=== PATIENT | female | born 1955 | race Caucasian/White ===

== ENCOUNTER 2024-10-19 18:00 | Inpatient (IN) | payer MEDICARE, BC ==
[~2024-10-19] VITALS: Ht 160 cm; Wt 88.2 kg
--- NOTE | 2024-10-19 18:18 | ELECTROCARDIOGRAPH REPORT ---
[facility] Test Date: 2024-10-19 Test Time: 18:06:43 Pat Name: CON EPPS Department: EMERGENCY ROOM [id number] Room: Gender: F Barrel Line Operator: PM : 1955 Requested By: JEEVAN FROST Order Number: [id number] Reading MD: Dr. Fili Smith Measurements Intervals [place] Rate: 77 P: -47 NE: 102 QRS: -79 QRSD: 127 T: 45 QT: 431 QTc: 488 Interpretive Statements Sinus or ectopic atrial rhythm Short NE interval RBBB and LAFB Minimal ST elevation, lateral leads Electronically Signed On 10-19-2024 20:09:[address] Fili Smith Please click the below link to view image of tracing.
[2024-10-19 18:36] LABS: MEAN PLATELET VOLUME 8.4 FL (7.4-10.4); RED CELL DISTRIBUTION WIDTH 14.1 % (11.5-14.5)
--- NOTE | 2024-10-19 18:48 | RADIOLOGY REPORT ---
CHEST RADIOGRAPH REASON FOR EXAM: Chest pain COMPARISON: None TECHNIQUE: One view of the chest is provided FINDINGS: The cardiomediastinal silhouette is within normal limits for technique. There is no focal a irspace disease. There is no significant pleural effusion. No acute bony abnormality is identified. IMPRESSION: No radiographic evidence of acute cardiopulmonary process.
[2024-10-19 19:14] LABS: CREATININE 1.01 MG/DL (0.40-0.90); PRO BRAIN NATRIURETIC PEPTIDE 1018 PG/ML (0-125); TOTAL CARBON DIOXIDE 23.8 MMOL/L (24-32); eCRCL 43 ML/MIN; eGFR 54 ML/MIN
--- NOTE | 2024-10-19 19:40 | Physician Documentation ---
History of Present Illness ~ Chief Complaint: Chest Pain Stated Complaint: CP Time Seen by MD: 19:37 OK to notify your PCP?: Yes Source: patient, RN/MD, RN notes reviewed, old records Mode of Arrival: POV Exam Limitations: no limitations HPI This patient is a 69-year-old female who presents to the ED with chief complaint of chest pain.Patient states she is traveling and was set to drive back to [place] this morning. She states approximately one hour prior to driving this morning, around 8AM this moring she started to have some chest pain. Describes his pain as a heavy pain in the center of her chest. Patient states this chest pain worsened with time. She notes she did recently have an appointment with her human resources consultant at [facility] at 8:00 a.m. this morning. She states that everything at her checkup was fine. She does note history of AFib with ablation in 2013. Her last stress test was in 2012. She is followed by human resources consultant, . PATIENT DENIES ANY ASSOCIATED SYMPTOMS AT THIS TIME. PATIENT DENIES ANY ALLEVIATING OR EXACERBATING FACTORS. Medication Reconciliation Allergies: Uncoded Allergies: PENICILLIN (Allergy, Unknown, 10/19/24) vomitting Scheduled Aspirin (Aspirin EC), 1 TAB PO DAILY Aspirin (Aspirin EC), 1 TAB PO DAILY Empagliflozin (Jardiance), 1 TAB PO DAILY, (Reported) Gabapentin (Gabapentin), 1 TAB PO TID, (Reported) Lisinopril (Lisinopril), 1 TAB PO DAILY, (Reported) Metformin Hcl* (Metformin ER*), 2 TAB PO BID, (Reported) Ticagrelor (Brilinta), 1 TAB PO Q12H Ticagrelor (Brilinta), 1 TAB PO Q12H [prednisolone], OP QID, (Reported) Miscellaneous Medications [Prednisolone], (Reported) Past Medical History Past Medical History: Hypertension, Diabetes Past Surgical History: noncontributory Smoking Status: Never smoker Alcohol Use: None Drug Use: none Review of Systems All Other Systems at this time: Reviewed and Negative Constitutional: Reports: see HPI Physical Exam Vital Signs: RN Vital Signs have been reviewed: Yes, Temperature: 97.0, Source: Temporal, Heart Rate: 81, Respiratory Rate: 20, BP: 155/92, Pulse Oximetry: 96, Weight: 88.200 Oxygen Flow Rate: 0 Physical Exam General: The patient is well developed, well nourished, nontoxic appearing and is in no acute distress. Skin: [place], warm and dry with no rashes. HEENT: Head was normocephalic and atraumatic. Eyes - pupils equal, round, reactive to light and accommodation. Extraocular movements were intact. Conjunctivae were nonicteric. Ears - bilateral tympanic membranes were normal. The mouth and oropharynx were clear with moist mucous membranes. There were no pharyngeal exudates or erythema. Neck: Supple and nontender. There was no jugular venous distention, lymphadenopathy, thyromegaly or masses. Chest: Clear to auscultation bilaterally without wheezes, rales or rhonchi. No accessory muscle use. No dullness to percussion. Heart: Rate regular and rhythmic. S1, S2. No murmurs. Palpation of the chest wall was normal. No rubs or thrills. Abdomen: Soft, nontender and nondistended. Positive bowel sounds. No guarding or rebound. No hepatosplenomegaly or palpable masses. Extremities: No cyanosis, clubbing or edema. The patient moves all extremities. Pulses were equal and symmetric. Neurologic: Cranial nerves II-XII were intact. Sensation was intact to light touch throughout. Motor strength was 5/5 in all four extremities. Deep tendon reflexes were intact in both upper and lower extremities. Psychologic: The patient was oriented to person, place and time. The patient demonstrated appropriate judgement and insight. Progress Progress Note 2006: Discussed case with human resources consultant, Dr. Choe who is aware. Recommends nitro drip if transient. 2004: Case discussed with hospitalist, who agrees to evaluate patient for admission. 2032: Case discussed with the hospitalist who agrees to evaluate patient for admission. Results/Orders Reviewed/noted all lab results: Yes Results/Orders Orders - FILI SMITH MD Electrocardiogram (10/19/24 19:52) Page Hospitalist (10/19/24 20:15) Fill Out Med Reconciliation (10/19/24 20:15) Completed Orders - FILI SMITH MD Pt Inr (10/19/24 19:37) PTT (10/19/24 19:37) Aspirin 81mg Chew Tablet (Aspirin 81mg C (10/19/24 19:50) Nitroglycerin 0.4mg/Hr Patch (Nitro-Dur (10/19/24 19:50) Electrocardiogram (10/19/24 19:52) Heparin 10,000 Unit/Ml 1ml (Heparin 10,0 (10/19/24 19:55) Heparin 25,000 Unit/250ml Bag (Heparin 2 (10/19/24 19:55) Normal Saline 1000ml (0.9% Sodium Chlori (10/19/24 20:15) Nitroglycerin Sublingual Tab (Nitrostat (10/19/24 20:15) Heparin 10,000 Unit/Ml 1ml (Heparin 10,0 (10/19/24 20:15) Heparin 10,000 Unit/Ml 1ml (Heparin 10,0 (10/19/24 20:15) Laboratory Tests Test 10/19/24 18:25 10/19/24 19:51 White Blood Count 11.0 Red Blood Count 4.97 Hemoglobin 14.8 Hematocrit 44.1 Mean Corpuscular Volume 88.6 Mean Corpuscular Hemoglobin 29.8 Mean Corpuscular Hemoglobin Concent 33.6 Red Cell Distribution Width 14.1 Platelet Count 289 Mean Platelet Volume 8.4 Neutrophils (%) (Auto) 64.0 Lymphocytes (%) (Auto) 26.4 Monocytes (%) (Auto) 7.3 Eosinophils (%) (Auto) 1.6 Basophils (%) (Auto) 0.7 Neutrophils # (Auto) 7.0 Lymphocytes # (Auto) 2.9 Monocytes # (Auto) 0.8 Eosinophils # (Auto) 0.2 Basophils # (Auto) 0.1 CBC Comment Prothrombin Time 10.4 INR International Normalized Ratio 1.0 Activated Partial Thromboplast Time 27 Coagulation Comments Sodium Level 139 Potassium Level 3.5 Chloride Level 103 Carbon Dioxide Level 23.8 L Anion Gap 12 Blood Urea Nitrogen 15 Creatinine 1.01 H Estimated GFR/1.73 m2 54 BUN/Creatinine Ratio 14.9 Glucose Level 181 H Hemoglobin A1c 7.4 H Calcium Level 9.5 Magnesium Level 1.5 Troponin I High Sensitivity 621 *H 1164 *H Pro-B-Type Natriuretic Peptide 1018 H Albumin 3.9 Triglycerides Level 121 Cholesterol Level 149 LDL Cholesterol 56 HDL Cholesterol 73 H Cholesterol/HDL Ratio 2.0 Thyroid Stimulating Hormone (TSH) 3.01 Chemistry Comments D-Dimer 0.72 H D-Dimer Comment Troponin I High Sens Percent Delta 87 Troponin I Hi Sens Absolute Change 543 Re-Evaluation Re-Evaluation : Re-Evaluation: Improved, Unchanged Progress Patient was seen and examined. Patient was given reassurance. Patient had some ischemic changes on EKG. Laboratory work was obtained IV lines obtained patient received aspirin as well as nitroglycerin. Patient was placed on a monitor IV lines established. CBC is within normal limits. No anemia no leukocytosis to suggest infection. Chemistry showed slight decrease in his CO2 at 23.8 glucose 181. Hemoglobin A1c was a bit high at 7.4 proBNP 1018. LFTs TSH and chemistry basically within normal limits no electrolyte abnormalities. Coagulation was also obtained. Patient is normal troponin is 621. Patient's EKG did show some signs of ischemia in her presentation was very suspicious for a myocardial infarction. Patient was stabilized. Patient received aspirin nitroglycerin and then later heparin drip and bolus. Spoke to Cardiology who recommended nitroglycerin drip if pain is not controlled. Later contacted the hospitalist who kindly agreed to admit the patient for further workup and care. Patient was found to be having a non ST-elevation HI. patient was then admitted to the hospitalist service for further workup and care. Continuous monitoring tech interpretation shows normal sinus rhythm heart rate 80s, no ectopy, normal, my interpretation. Pulse oximetry monitor interpretation shows normal oxygenation at 99% room air, normal, my interpretation. EKG/XRAY/CT/US/VASC/MRI EKG : Intepreting Monitor?: Yes Additional Comment Patient: CON EPPS Medical Record: [id number] [facility] : 1955, Age: 69Sex: F Location: ER Patient Status: [facility] ER Service Date/Time: [id number] Ordering Physician: JEEVAN FROST MD Exam Name: ELECTROCARDIOGRAM Technologist: [facility] Test Date: 2024-10-19 Test Time: 18:06:43 Pat Name: CON EPPS Department: EMERGENCY ROOM Patient ID: [facility]-[id number] Room: Gender: F Projector Operator: PM : 1955 Requested By: JEEVAN FROST Order Number: [id number] Reading MD: Dr. Fili Smith Measurements Intervals [place] Rate: 77 P: -47 [place]: 102 QRS: -79 QRSD: 127 T: 45 QT: 431 QTc: 488 Interpretive Statements Sinus or ectopic atrial rhythm Short NC interval RBBB and LAFB Minimal ST elevation, lateral leads Electronically Signed On 10-19-2024 20:09:[address] Fili Smith Please click the below link to view image of tracing. EKG Date and Time:10/19/241805 Electronically Signed by: FILI SMITH MD Date and Time: 10/19/242008 NO PRIMARY CARE PROVIDER~ cc: ~ Chest X-Ray : Additional Comments Patient: CON EPPS Medical Record: [id number] [facility] : 1955, Age: 69 Sex: Female Location: ER Patient Status: [facility] ER Service Date/Time: 10/19/241831 Ordering Physician: JEEVAN FROST MD Exam: CHEST,SINGLE VIEW CHEST RADIOGRAPH REASON FOR EXAM: Chest pain COMPARISON: None TECHNIQUE: One view of the chest is provided FINDINGS: The cardiomediastinal silhouette is within normal limits for technique. There is no focal airspace disease. There is no significant pleural effusion. No acute bony abnormality is identified. IMPRESSION: No radiographic evidence of acute cardiopulmonary process. Electronically Signed by:TOM LEE MD Date & Time: 10/19/241844 Dictated by: TOM LEE MD Dictation date and time: 10/19/241829 Primary Care Provider: NO PRIMARY CARE PROVIDER cc: JEEVAN FROST MD ~ Heart Score: Heart Score Response (Comments) Value History Moderate Suspicious 1 EKG Repolarization Disturb 1 Age >65 2 Risk Factors >3 or Hx ASHD 2 Troponin >3 x's Normal limit 2 Total 8 Medical Decision Making Additional info obtained from: old records Differential Dx:Considerations: Include: angina, aortic dissection, chest wall pain, cholelithiasis, CHF, costochondritis, esophageal reflux/spasm, gastritis, herpes zoster, myocardial infarction, pericarditis, pleuritis, pancreatitis, pneumonia, pneumothorax, pulmonary embolus, other Departure Time of Disposition: 20:05 Disposition: ADMITTED INPATIENT Admitted to Inpatient Unit: yes, to hospitalist Admission Level of Care: PCU with Tele Impression: Primary Impression: NSTEMI (non-ST elevated myocardial infarction) Condition: Guarded Referrals: NO PRIMARY CARE PROVIDER (PCP) Prescriptions Ticagrelor (BRILINTA) 90 Mg Tablet 1 TAB PO Q12H for 30 Days, #60 TAB 0 Refills Prov: DARION LOPEZ MD 10/22/24 Aspirin (Aspirin EC) 81 Mg Tablet.dr 1 TAB PO DAILY for 30 Days, #30 TAB Prov: DARION LOPEZ MD 10/22/24 Aspirin (Aspirin EC) 81 Mg Tablet.dr 1 TAB PO DAILY for 30 Days, #30 TAB 3 Refills Prov: LAURA OWENS 10/21/24 Ticagrelor (BRILINTA) 90 Mg Tablet 1 TAB PO Q12H for 30 Days, #60 TAB 3 Refills Prov: LAURA OWENS 10/21/24 Education Educated: Patient Educated regarding: diagnosis Critical Care Note Total Time (mins): 30 Critical Care Note The very real possibility of a deterioration of this patient's condition required the highest level of my preparedness for sudden, emergent intervention. I provided critical care services, which included medication orders, frequent reevaluations of the patient's condition and response to treatment, ordering and reviewing test results, and discussing the case with various consultants. Excludes time spent performing separately billable procedures. The critical care time associated with the care of the patient was 30 minutes. Signature Scribe Signature: Scribed for Fili Smith MD by Perla Bates . 10/19/24 20:04 Attestation: The note accurately reflects work and decisions made by me.Fili Smith MD 10/24/24 18:58 FILI SMITH MD Oct 19, 2024 19:40
[2024-10-19 20:09] LABS: APTT 27 SECONDS (22-32); INR 1.0 INR
[2024-10-19] MEDS: heparin 10,000 units/1 ML INJ IV ONE ×2 (20:09→20:40)
[2024-10-19] MEDS: heparin 25,000 UNIT/250ml bag 250 ML IV PRN (20:21)
[2024-10-19] MEDS: MESSAGE TO NURSING IV ONE (20:40)
[2024-10-19] MEDS: normal saline 1000ml 1,000 ML IV ONE (20:44)
[2024-10-19] MEDS ORDERED: magnesium sulf-water 4G/100mL 100 ML IV PRN (21:20)
[2024-10-19] MEDS ORDERED: mag hydrox/Alum hydrox/simeth 30ml oral suspension PO PRN (21:20)
[2024-10-19] MEDS ORDERED: potassium Cl 20 mEq SR tablet PO PRN (21:20)
[2024-10-19] MEDS ORDERED: magnesium sulf-water 2g/50mL 50 ML IV PRN (21:20)
[2024-10-19] MEDS ORDERED: potassium Cl 40MEQ/1/2NS 520ml 520 ML IV PRN (21:20)
[2024-10-19] MEDS ORDERED: magnesium hydroxide 30ml (MOM) UD suspension PO PRN (21:20)
[2024-10-19] MEDS ORDERED: glucagon, human recombinant 1mg kit SUBCUT PRN (21:30)
[2024-10-19] MEDS ORDERED: dextrose 50%-water 50ml dispensing syringe IV PRN ×2 (21:30)
[2024-10-19] MEDS ORDERED: DEXTROSE 15 GM of carb/4 tabs (each vial/BOTTLE has 4 tablets) PO PRN ×2 (21:30)
--- NOTE | 2024-10-19 21:32 | HISTORY AND PHYSICAL-Residence ---
History & Physical Providers to CC Resident Creating Document: GISELLEBRITTANY BOSCH ~ History of Present Illness Reason for Admit\Complaint: NSTEMI History of Present Illness This is a 69-year-old female patient with past medical history of hypertension, diabetes, atrial fibrillation, duodenal cancer, presented to the ED for chest pain. The chest pain started after a stressful discussion at 4:00 p.m. while she was driving, radiating to the back and left shoulder, worsening with movement and improving with rest, associated with nausea, dizziness and lightheadedness. Patient denies shortness of breath, cough, fever, or any other symptoms. The chest pain slightly improved after nitroglycerin tablet, now is 5/10 in intensity. No other symptom reported. Patient had ablation for AFib approximately in 2014 and had to use Warfarin after the procedure. In spite of that, she has not using it for the last few years because she lost cardiology follow-up. Patient is following with Dr. Blevins at [facility] for previous duodenal cancer in 2020, treated with surgery. No radiation or chemotherapy needed afterwards. Allergies: Uncoded Allergies: PENICILLIN (Allergy, Unknown, 10/19/24) vomitting Past Medical History Past Medical History Hypertension, diabetes, atrial fibrillation, duodenal cancer Past Surgical History Surgical History Comment Duodenectomy in 2020 Appendectomy 2021 Past Social History Social History Comment Patient used to smoke one pack of cigarettes for approximately 30 years. She quit 30 years ago. Denies alcohol abuse States using marijuana at bedtime. No other illicit drug use. Smoking: Quit greater than 1 year Alcohol Use: None Drug Use: Marijuana Lives with: Family Lives In: Home Occupation: retired ROS All Other Systems: Reviewed and Negative Constitutional: Reports: see HPI Eyes: Reports: no symptoms reported ENT: Reports: no symptoms reported Respiratory: Reports: no symptoms reported Cardiovascular: Reports: chest pain, diaphoresis, lightheadedness Gastrointestinal: Reports: nausea Genitourinary: Reports: no symptoms reported Female Genitalia: Reports: no reported symptoms Neurological: Reports: dizziness Musculoskeletal: Reports: no symptoms reported Integumentary: Reports: no symptoms reported Allergic/Immunologic: Reports: no symptoms reported Hematologic/Lymphatic: Reports: no symptoms reported Endocrine: Reports: no symptoms reported Psychiatric: Reports: no symptoms reported Exam Vitals: Vital Signs Date Time Temp Pulse Resp B/P (MAP) Pulse Ox O2 Delivery O2 Flow Rate FiO2 10/19/24 20:51 90 163/93 (116) 94 10/19/24 18:10 97.0 20 0 General: General: Awake and Alert, no acute distress. HEENT: Conjunctiva pink, Sclera clear, Mucus Membranes moist. Neck: Supple without masses and tenderness. Resp: Unlabored. Lungs clear to auscultation bilaterally. Heart: Regular Rate and rhythm, normal S1 and S2 without murmur, rub or gallop. Abdomen: Soft and non tender no organomegaly Extremities: No cyanosis,clubbing. Trace lower extremity bilateral edema. Skin: Warm and Dry. Diagnostic Data Last Recorded Lab Results: 10/20/24 0245 10/20/24 0245 Diagnostic Data: Laboratory Tests Test 10/19/24 18:25 Prothrombin Time 10.4 SECONDS (9.0-12.0) INR International Normalized Ratio 1.0 INR Activated Partial Thromboplast Time 27 SECONDS (22-32) Coagulation Comments Advance Care Planning Advanced Care plannin - 30 Minutes (I discussed advanced care directives with the patient who wants to be full code. However, if after 1st resuscitation she goes into a 2nd cardiac arrest, she do not want to be resuscitated.) Additional Plan Assessment This is a 69-year-old female patient with a history of hypertension, diabetes, atrial fibrillation, duodenal concern, admitted for chest pain. EKG showed signs of ischemia, troponin was elevated and she was diagnosed with NSTEMI. Dr. Choe was consulted, recommended medical treatment initially and will follow the patient. Plan NSTEMI Heart score 9 points (high score), ELSA 4 points (20% mortality risk), GEOVANNY 114 points (6% probability of ) EKG: <1mm ST elevation in aVR and V2. Diffuse ST depression. Dr. Choe confirmed NSTEMI. Troponins: 621 - 1164 - pending BNP 1018 Started on heparin drip Ordered aspirin and clopidogrel loading dose Ordered nitroglycerin 0.4 mg p.r.n. Started on aspirin 81 mg, clopidogrel 75 mg, lisinopril 10 mg, carvedilol 3.125 mg b.i.d., atorvastatin 40 mg, furosemide 40 mg p.o. 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 Date of Service: Oct 19, 2024 Billing Provider: GAVIOTA MORIN MD Common Visit Codes: 50534-PUFDJPC INP/OBS CARE (HIGH) Assessment/Plan Assessment Evaluated the patient with the help of residents. Discussed the case with them. Reviewed notes by Dr. Bosch and agree with his assessments and plans. I also reviewed the records myself. This included labs, radiology, and notes from other providers. Will be careful with ani platelets at this time. Await cards impressions HIRO DESAI, RES Oct 19, 2024 21:32 GAVIOTA MORIN MD Oct 20, 2024 04:42
[2024-10-19 22:13] LABS: CHOL/HDL RATIO 2.0 (0.00-4.99); LDL CHOLESTEROL 56 MG/DL (50-100)
[2024-10-19] MEDS ORDERED: METF-900 PO (22:20)
[2024-10-19] MEDS ORDERED: LISI20TA28 PO (22:20)
[2024-10-19] MEDS ORDERED: EMPA10TA PO (22:20)
[2024-10-19] MEDS ORDERED: GABA-1405 PO (22:21)
[2024-10-19 23:10] VITALS: BP 139/88; PULSE 92; RESP 17; TEMP 96.8; O2SAT 95
[2024-10-20] VITALS (15 sets, daily range): BP systolic 11–156; BP diastolic 54–79; PULSE 65–89; RESP 12–18; TEMP 97–98; O2SAT 93–100
[2024-10-20] MEDS ORDERED: prednisolone OP (01:18)
[2024-10-20] MEDS ORDERED: PREDNISOLONE (01:18)
[2024-10-20 03:14] LABS: MEAN PLATELET VOLUME 8.5 FL (7.4-10.4); RED CELL DISTRIBUTION WIDTH 13.8 % (11.5-14.5)
[2024-10-20 03:40] LABS: CREATININE 0.82 MG/DL (0.40-0.90); TOTAL CARBON DIOXIDE 24.0 MMOL/L (24-32); eCRCL 53 ML/MIN; eGFR 69 ML/MIN
[2024-10-20] MEDS: MESSAGE TO NURSING IV ONE ×2 (04:25→12:10)
--- NOTE | 2024-10-20 06:02 | ELECTROCARDIOGRAPH REPORT ---
[facility] Test Date: 2024-10-19 Test Time: 19:55:03 Pat Name: CON EPPS Department: EMERGENCY ROOM Room: [place] [address] [address] Gender: F Director Of Public Safety: SONYA : 1955 Requested By: CARLOS HENDRICKS Order Number: [id number] Reading MD: Dr. Carlos Hendricks Measurements Intervals [place] Rate: 86 P: 64 [place]: 158 QRS: -72 QRSD: 138 T: 15 QT: 410 QTc: 491 Interpretive Statements Sinus rhythm RBBB and LAFB Electronically Signed On 10-20-2024 18:33:[address] Carlos Hendricks Please click the below link to view image of tracing.
[2024-10-20] MEDS: INSULIN LISPRO 100 UNIT/ML INSULN.PEN MULTI-DOSE SQ SCH (07:00)
[2024-10-20] MEDS: K and/or MAG REPLACEMENT MC SCH (08:00)
[2024-10-20] MEDS: pantoprazole 40mg Tablet.DR PO SCH (09:19)
[2024-10-20] MEDS: aspirin 81mg, enteric-coated 1 TAB TABLET.DR PO SCH (09:21)
--- NOTE | 2024-10-20 09:44 | PROGRESS NOTE ---
Daily Progress Note Providers to CC No new complaint today, resting comfortably in the bed ~ Central Line/PICC still needed: No Leija-Non Protocol Leija Indications Met/Not Met: F/C Indications Not Met Antibiotic Timeout Antibiotic Ordered?: No MRSA Education MRSA Education Provided to pt: No Subjective As above Objective Vital Signs Date Time Temp Pulse Resp B/P (MAP) Pulse Ox O2 Delivery O2 Flow Rate FiO2 10/20/24 09:22 97 10/20/24 07:00 97.0 16 156/75 (102) 97 Room Air 0.0 21 Vital signs, stable ,afebrile. Pulse Oximetry reflects adequate oxygenation. General: well developed, well nourished. Awake , alert, and oriented x4, resting comfortably in the bed, in no acute distress . Skin: Warm, dry, no pallor, no rash or petechiae. HEENT: Atraumatic, normocephalic, EOMI, anicteric sclera B; pink conjunctiva; PERRLA, normal oropharynx, moist oral and nasal mucosa. Tympanic membrane , nose , throat clear. Neck: Trachea midline. Supple, full range of motion, no JVD, bruit , hepatojugular reflex , lymphadenopathy or masses, or other lesions Cardiac: Regular rhythm, regular rate no murmurs, rubs, or gallops. Normal S1 and S2, no S3 noticed. PMI is normal. Respiratory: Equal breath sounds bilaterally, no tachypnea; lungs clear to auscultation bilaterally, no wheezing ,rub or rales, or crackles. Chest wall is symmetric and without deformity. No signs of trauma. Chest wall is nontender. No signs of respiratory distress. Resonance is normal upon percussion bilaterally. Gastrointestinal: Abdomen symmetric, non-distended, soft, non-tender, normal bowel sounds x4 quadrant, normoactive, no hepatosplenomegaly , no masses , no bruit, no flank pain bilaterally. No voluntary guarding, rebound, or rigidity. No tenderness to percussion. No pulsatile masses. Equal femoral pulses. No Ray's sign or McBurney point tenderness. Back; no CVA tenderness bilaterally, no deformities. Neck and back are without deformity as well. No tenderness noted on palpation of the spinous processes. Spinous processes are midline. Cervical, thoracic, and lumbar paraspinal muscles are not tender and are without spasm. Musculoskeletal: Extremities, normal range of motion, non-tender, muscle strength 5/5 x 4. Negative Homans signs bilaterally on lower extremity. Distal pulses full symmetrical, no clubbing, cyanosis , edema. Neurological: Speech is clear, alert, and oriented x 4. No motor or sensory deficit, deep tendon reflexes normal, cerebellar intact. Cranial nerves II-XII intact. Psych: Alert and or appropriate, normal affect. Vascular: Good distal pulses, which are equal x4; capillary refill less than 2 seconds. Lymphatic, no lymphadenopathy. Result Diagram: 10/20/24 0245 10/20/24 0245 Coagulation Studies Laboratory Tests Test 10/19/24 18:25 10/19/24 19:51 10/20/24 02:45 10/20/24 03:10 Prothrombin Time 10.4 SECONDS (9.0-12.0) INR International Normalized Ratio 1.0 INR Activated Partial Thromboplast Time 27 SECONDS (22-32) D-Dimer 0.72 MG/L FEU (0-0.50) H D-Dimer Comment Coagulation Comments APTT (Heparin Protocol) 85 SECONDS (45-60) H Problem\Assessment\Plan Assessment/ Plan This is a 69-year-old female patient with a history of hypertension, diabetes, atrial fibrillation, duodenal concern, admitted for chest pain. EKG showed signs of ischemia, troponin was elevated and she was diagnosed with NSTEMI. Dr. Choe was consulted, recommended medical treatment initially and will follow the patient. NSTEMI Heart score 9 points (high score), ELSA 4 points (20% mortality risk), GEOVANNY 114 points (6% probability of ) EKG: <1mm ST elevation in aVR and V2. Diffuse ST depression. Dr. Choe confirmed NSTEMI. Awaiting to go to cardiac catheterization today Troponins: 621 - 1164 - pending BNP 1018 Started on heparin drip Ordered aspirin and clopidogrel loading dose Ordered nitroglycerin 0.4 mg p.r.n. Started on aspirin 81 mg, clopidogrel 75 mg, lisinopril 10 mg, carvedilol 3.125 mg b.i.d., atorvastatin 40 mg, furosemide 40 mg p.o. 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
--- NOTE | 2024-10-20 11:57 | CONSULTATION REPORT ---
History of Present Illness Providers to CC CC: TYRESE CHOE MD ~ Reason for Admit\Admit Dx: Cardiology consultation History of Present Illness This is a 69-year-old female who presented secondary to chest pain. She has a history of hypertension, diabetes mellitus, atrial fibrillation status post ablation 2014, duodenal cancer in remission. She presented yesterday, October 19 secondary to chest pain that started after a stressful conversation. She was in the [place] area at the time. She described pain across her center and left chest which radiated to her left shoulder, neck and back. Occurred while at rest. Had associated shortness for breath, diaphoresis, dizziness and nausea. She describes the pain as a pressure. Otherwise, reports a couple months ago she had one episode of swelling in her bilateral feet. She was given a prescription for Lasix but did not end up needing to take it. She complains of intermittent, rare, nonsustained palpitations. Otherwise, review of systems negative. High sensitivity troponin 621, 1164, 1493, 1194. EKG right bundle-branch block with left anterior fascicular block. Allergies: Uncoded Allergies: PENICILLIN (Allergy, Unknown, 10/19/24) vomitting Home Medications Home Medications Active Reported [Prednisolone] [prednisolone] OP QID Gabapentin 600 Mg Tablet 1 Tab PO TID Jardiance (Empagliflozin) 10 Mg Tablet 1 Tab PO DAILY Metformin ER* (Metformin HCl) 500 Mg Tab.sr.24h 2 Tab PO BID Lisinopril 20 Mg Tablet 1 Tab PO DAILY Past Medical History Medical History Comment Hypertension Hyperlipidemia with the last hemoglobin A1c 7.0 Atrial fibrillation status post ablation Duodenal cancer in remission Past Surgical History Surgical History Comment Duodenectomy Appendectomy Ablation for atrial fibrillation Past Social History Social History Comment History of smoking. Has quit. No drugs or alcohol use. Physical Exam Last Vital Signs Recorded: RN Vital Signs have been reviewed: Yes, Temperature: 97.4, Source: Temporal, Heart Rate: 81, Respiratory Rate: 12, BP: 134/79, Pulse Oximetry: 97, Weight: 88.200 Physical Exam General: Awake, alert, oriented. No apparent distress Neck: Supple. Normal range of motion. No JVD Respiratory: Lungs are clear to auscultation bilaterally. No respiratory distress. Chest: Normal shape and size. No accessory muscle use. Cardiovascular: Regular rate and rhythm. S1-S2. No murmur, gallop, rub. Gastrointestinal: Abdomen is soft. Nontender to palpation. Bowel sounds present. Extremities: No lower extremity edema, cyanosis or clubbing. Neurologic: Alert and oriented x4. Nonfocal Psychiatric: Normal mood and affect. Skin: Normal color. Warm and dry. Review of Systems ROS Patient complains of chest pain with associated shortness for breath, diaphoresis, dizziness and nausea as noted in HPI. Rare palpitations. Otherwise review of systems negative. Results Diagram Lab Result Diagram: 10/20/2424410/20/24244 Assessment/Plan Additional Plan This is a 69-year-old female who presented with chest pain. The following is her problem list: NSTEMI Echocardiogram pending --continue heparin drip --continue carvedilol --aspirin 81 mg daily --start statin --was started on Plavix 75 mg daily --recommend cardiac catheterization. The risks, benefits and alternatives were reviewed with her. She wishes to proceed. She will be scheduled for this afternoon. Right bundle-branch block and left anterior fascicular block --continue to monitor on telemetry Hypertension --continue lisinopril Diabetes mellitus Hemoglobin A1c 7.4 --management per hospitalist History of atrial fibrillation Status post ablation in 2015 States no reoccurrence. As no longer on oral anticoagulation. --recommend further discussion as an outpatient. She will follow up at Dr. Choe's office. Case discussed with Dr. Zurdo Choe. Supervising Supervising Physician: YUKO Rodriguez NP Oct 20, 2024 11:57
[2024-10-20] MEDS: heparin 25,000 UNIT/250ml bag 250 ML IV PRN (12:00)
[2024-10-20] MEDS: magnesium Cl slow-release 64mg tablet PO PRN (12:05)
[2024-10-20] MEDS: heparin 10,000 units/1 ML INJ IV PRN (12:05)
[2024-10-20] MEDS ORDERED: LIDOcaine 1% (10mg/ml) 2ml vial ONE (15:47)
[2024-10-20] MEDS ORDERED: fentaNYL/PF 50MCG/1 ML 2ML syringe ONE (15:47)
[2024-10-20] MEDS ORDERED: midazolam 1 mg/ML 2ml injection ONE ×3 (15:47→16:42)
[2024-10-20] MEDS ORDERED: verapamil 2.5 mg/ml inj IV ONE (15:47)
[2024-10-20] MEDS ORDERED: heparin 1,000unit/ml 10ml vial 10 ML ONE (15:48)
[2024-10-20] MEDS ORDERED: nitroGLYCERIN 500mcg/5mL D5W 5 ML IV ONE (15:49)
--- NOTE | 2024-10-20 16:09 | CARDIOLOGY REPORT ---
APPROVED REPORT EXAM: Comprehensive 2D, Doppler, and color-flow Echocardiogram. Patient Location: [address] Heart Rate: 80's bpm Rhythm: SINUS Indications MYOCARDIAL INFARCTION HYPERTENSION DIABETES MELLITUS ATRIAL FIBRILLATION S/P ABLATION 2014 Telephoto Engineer: NONE Previous echo: NONE 2D Dimensions RVDd 2.8 cm IVSd 1.0 (0.7-1.1cm) LVDd 5.1 cm PWd 1.1 (0.7-1.1cm) IVSs 1.2 (0.8-1.2cm) LVDs 3.6 (2.5-4.0cm) PWs 1.5 (0.8-1.2cm) LVOT Diameter 1.97 (1.8-2.4cm) LVEF(%) 55.7 (>50%) IVC 16.04 mm FS (%) 29.1 % SV 67.8 ml CO 5.4 L/min M-Mode Dimensions Left Atrium(MM) 5.03 (2.5-4.0cm) Aortic Root 2.97 (2.2-3.7cm) Aortic Cusp Exc 1.81 (1.5-2.0cm) Aortic Valve AoV Peak Richar. 164.2 cm/s AoV VTI 33.0 cm AO Peak GR. 10.8 mmHg AO Mean GR. 6 mmHg LVOT VTI 22.46 cm LVOT Peak Richar. 106.2 cm/s JOSE(VTI)/BSA 2.08 cm2/m2 JOSE (VTI) 2.08 cm2 Mitral Valve MV E Velocity 139.9 cm/s MV Peak Gr. 8 mmHg MV DECEL TIME 208 ms MV A Velocity 79.1 cm/s MV PHT 52 ms E/A Ratio 1.8 MVA (PHT) 4.23 cm2 MV HChh241.4 cm/s TDI Lateral E' P. V4.69 cm/s E/Lateral E' 29.8 Tricuspid Valve TR P. Velocity 313 cm/s RAP ESTIMATE 10 mmHg TR Peak Gr. 39 mmHg RVSP 49 mmHg Pulmonary Vein S1 Velocity 41.6 cm/s D2 Velocity 61.8 cm/s LEFT VENTRICLE Normal LV size and wall thickness. Distal anteroseptal distal inferior hypokinesia seen. Overall syst olic function is mildly impaired. Overall LVEF is about 50%. RIGHT VENTRICLE RV is normal size and function. Estimated PA systolic pressure of 49 mm of mercury. ATRIA Left atrium is moderately dilated. AORTIC VALVE Trileaflet AV appears mildly sclerotic without stenosis. Mild insufficiency. MITRAL VALVE Mild MV annular calcification without stenosis. Mild regurgitation. TRICUSPID VALVE TV appears structurally normal with mild regurgitation. PULMONIC VALVE Normal PV without stenosis, physiologic insufficiency. GREAT VESSELS The aortic root is normal in size. IVC is normal in size and collapses greater than 50% with inspirat ion. PERICARDIUM Normal pericardium. No effusion. Conclusion Normal LV size and wall thickness. Distal anteroseptal distal inferior hypokinesia seen. Overall sys tolic function is mildly impaired. RV is normal size and function. Estimated PA systolic pressure of 49 mm of mercury. Trileaflet AV appears mildly sclerotic without stenosis. Mild insufficiency. Mild MV annular calcification without stenosis. Mild regurgitation. TV appears structurally normal with mild regurgitation. Normal PV without stenosis, physiologic insufficiency. Normal pericardium. No effusion.
[2024-10-20] MEDS ORDERED: OXAZEpam 15mg capsule PO PRN (18:35)
[2024-10-20] MEDS ORDERED: ondansetron/PF 4mg/2ml inj IV PRN (18:35)
[2024-10-20] MEDS: docusate sod 100mg capsule PO SCH (21:28)
[2024-10-21] VITALS (8 sets, daily range): BP systolic 97–140; BP diastolic 42–83; PULSE 72–97; RESP 12–16; TEMP 97.1–97.9; O2SAT 95–100
[2024-10-21] MEDS: ondansetron/PF 4mg/2ml inj IV PRN (01:44)
[2024-10-21 05:55] LABS: MEAN PLATELET VOLUME 8.4 FL (7.4-10.4); RED CELL DISTRIBUTION WIDTH 13.7 % (11.5-14.5)
[2024-10-21 06:46] LABS: CREATININE 0.91 MG/DL (0.40-0.90); TOTAL CARBON DIOXIDE 23.4 MMOL/L (24-32); eCRCL 48 ML/MIN; eGFR 61 ML/MIN
[2024-10-21] MEDS: aspirin 81mg, enteric-coated 1 TAB TABLET.DR PO ONE (08:06)
[2024-10-21] MEDS ORDERED: TICA90TA2 PO (16:12)
[2024-10-21] MEDS ORDERED: ASPI81TA52 PO (16:13)
--- NOTE | 2024-10-21 18:02 | PROGRESS NOTE ---
Daily Progress Note Providers to CC No new complaint, yesterday had cardiac catheterization with stent, doing well in recovery ~ Central Line/PICC still needed: No Leija-Non Protocol Leija Indications Met/Not Met: F/C Indications Not Met Antibiotic Timeout Antibiotic Ordered?: No MRSA Education MRSA Education Provided to pt: No Subjective As above Objective Vital Signs Date Time Temp Pulse Resp B/P (MAP) Pulse Ox O2 Delivery O2 Flow Rate FiO2 10/21/24 15:00 97.6 97 14 104/57 (73) 95 Room Air 10/21/24 08:00 0.0 21 Vital signs, stable ,afebrile. Pulse Oximetry reflects adequate oxygenation. General: well developed, well nourished. Awake , alert, and oriented x4, resting comfortably in the bed, in no acute distress . Skin: Warm, dry, no pallor, no rash or petechiae. HEENT: Atraumatic, normocephalic, EOMI, anicteric sclera B; pink conjunctiva; PERRLA, normal oropharynx, moist oral and nasal mucosa. Tympanic membrane , nose , throat clear. Neck: Trachea midline. Supple, full range of motion, no JVD, bruit , hepatojugular reflex , lymphadenopathy or masses, or other lesions Cardiac: Regular rhythm, regular rate no murmurs, rubs, or gallops. Normal S1 and S2, no S3 noticed. PMI is normal. Respiratory: Equal breath sounds bilaterally, no tachypnea; lungs clear to auscultation bilaterally, no wheezing ,rub or rales, or crackles. Chest wall is symmetric and without deformity. No signs of trauma. Chest wall is nontender. No signs of respiratory distress. Resonance is normal upon percussion bilaterally. Gastrointestinal: Abdomen symmetric, non-distended, soft, non-tender, normal bowel sounds x4 quadrant, normoactive, no hepatosplenomegaly , no masses , no bruit, no flank pain bilaterally. No voluntary guarding, rebound, or rigidity. No tenderness to percussion. No pulsatile masses. Equal femoral pulses. No Ray's sign or McBurney point tenderness. Back; no CVA tenderness bilaterally, no deformities. Neck and back are without deformity as well. No tenderness noted on palpation of the spinous processes. Spinous processes are midline. Cervical, thoracic, and lumbar paraspinal muscles are not tender and are without spasm. ss. Musculoskeletal: Extremities, normal range of motion, non-tender, muscle strength 5/5 x 4. Negative Homans signs bilaterally on lower extremity. Distal pulses full symmetrical, no clubbing, cyanosis , edema. Neurological: Speech is clear, alert, and oriented x 4. No motor or sensory deficit, deep tendon reflexes normal, cerebellar intact. Cranial nerves II-XII intact. Psych: Alert and or appropriate, normal affect. Vascular: Good distal pulses, which are equal x4; capillary refill less than 2 seconds. Lymphatic, no lymphadenopathy. Result Diagram: 10/21/24 0517 10/21/24 0517 Coagulation Studies Laboratory Tests Test 10/19/24 18:25 10/19/24 19:51 10/20/24 10:38 10/20/24 18:12 Prothrombin Time 10.4 SECONDS (9.0-12.0) INR International Normalized Ratio 1.0 INR Activated Partial Thromboplast Time 27 SECONDS (22-32) D-Dimer 0.72 MG/L FEU (0-0.50) H D-Dimer Comment APTT (Heparin Protocol) 43 SECONDS (45-60) L Coagulation Comments Problem\Assessment\Plan Assessment/ Plan This is a 69-year-old female patient with a history of hypertension, diabetes, atrial fibrillation, duodenal concern, admitted for chest pain. EKG showed signs of ischemia, troponin was elevated and she was diagnosed with NSTEMI. Dr. Choe was consulted, recommended medical treatment initially and will follow the patient. NSTEMI Heart score 9 points (high score), ELSA 4 points (20% mortality risk), GEOVANNY 114 points (6% probability of ) EKG: <1mm ST elevation in aVR and V2. Diffuse ST depression. Dr. Choe confirmed NSTEMI. Status post cardiac catheterization postoperative day 1., good recovery, Troponins: 621 - 1164 - pending BNP 1018 CHF, preserved ejection fraction in exacerbation Started on heparin drip Ordered aspirin and clopidogrel loading dose Ordered nitroglycerin 0.4 mg p.r.n. Started on aspirin 81 mg, clopidogrel 75 mg, lisinopril 10 mg, carvedilol 3.125 mg b.i.d., atorvastatin 40 mg, furosemide 40 mg p.o. daily Ordered lipid panel Ordered echocardiogram Hypertension Started on lisinopril 10 mg daily Pending med reconciliation Diabetes Ordered A1c Hyper/hypoglycemia protocol History of atrial fibrillation CHADS-Vasc 4 points Current on sinus rhythm, no episode of AFib after the procedure Patient had ablation in 2014 and has not been using anticoagulants for years Marijuana use Substance use navigator consulted Ordered drug screen Duodenal cancer In remission since surgery in 2020, free margins No radiotherapy or chemotherapy needed Following with Oncology at [facility] Code Status: Full code Spoke with Dr. Choe, agree to discharge patient in the morning Sepsis Screening Reassessment Date: Oct 21, 2024 Date of Service: Oct 21, 2024 Billing Provider: DARION LOPEZ MD Common Visit Codes: [id number] INP/OBS CARE(HIGH) DARION LOPEZ MD Oct 21, 2024 18:02
[2024-10-21 18:44] LABS: CREATININE 1.38 MG/DL (0.40-0.90); TOTAL CARBON DIOXIDE 25.2 MMOL/L (24-32); eCRCL 31 ML/MIN; eGFR 38 ML/MIN
[2024-10-21] MEDS: potassium Cl 20 mEq SR tablet PO PRN (19:50)
[2024-10-22 02:00] VITALS: BP 99/57; PULSE 69; RESP 18; TEMP 97.4; O2SAT 99
[2024-10-22 05:49] LABS: MEAN PLATELET VOLUME 8.3 FL (7.4-10.4); RED CELL DISTRIBUTION WIDTH 13.9 % (11.5-14.5)
[2024-10-22 06:00] VITALS: BP 116/53; PULSE 70; RESP 18; TEMP 97.6; O2SAT 97
[2024-10-22 06:06] LABS: CREATININE 1.02 MG/DL (0.40-0.90); TOTAL CARBON DIOXIDE 27.2 MMOL/L (24-32); eCRCL 42 ML/MIN; eGFR 54 ML/MIN
[2024-10-22 08:00] VITALS: RESP 18; O2SAT 97
[2024-10-22] MEDS ORDERED: TICA90TA2 PO (10:35)
[2024-10-22] MEDS ORDERED: ASPI81TA52 PO (10:35)
[2024-10-22 11:00] VITALS: BP 107/63; PULSE 81; RESP 16; TEMP 97.5; O2SAT 96
--- NOTE | 2024-10-22 18:50 | DISCHARGE SUMMARY ---
Discharge Summary Providers to No new complaint today asking to be discharged home was cleared for discharge by automation qa analyst ~ Discharge Summary Assessment Non ST-elevation MA Status post cardiac catheterization and placement of one stent diabetes mellitus poor control Hypertension poor control atrial fibrillation controlled Ventricular rate Marijuana use duodenal cancer Admission Diagnosis: MYOCARDIAL INFARCTION Admission Diagnosis Comment: Non ST-elevation MA Status post cardiac catheterization and placement of one stent diabetes mellitus poor control Hypertension poor control atrial fibrillation controlled Ventricular rate Marijuana use duodenal cancer Hospital Course DATE OF ADMISSION: October 19, 2024 DATE OF DISCHARGE: October 22, 2024 Discharge Diagnosis\Comment: Non ST-elevation MA Status post cardiac catheterization and placement of one stent diabetes mellitus poor control Hypertension poor control atrial fibrillation controlled Ventricular rate Marijuana use duodenal cancer Operations\Procedures: Cardiac catheterization Consultants: Director Utilization Management Complications: Non Condition on DC: Stable Discharge Summary: This is a 69-year-old female patient with past medical history of hypertension, diabetes, atrial fibrillation, duodenal cancer, presented to the ED for chest pain. The chest pain started after a stressful discussion at 4:00 p.m. while she was driving, radiating to the back and left shoulder, worsening with movement and improving with rest, associated with nausea, dizziness and lightheadedness. Patient denies shortness of breath, cough, fever, or any other symptoms. The chest pain slightly improved after nitroglycerin tablet, now is 5/10 in intensity. No other symptom reported.Patient had ablation for AFib approximately in 2014 and had to use Warfarin after the procedure. In spite of that, she has not using it for the last few years because she lost cardiology follow-up. Patient is following with Dr. Blevins at [facility] for previous duodenal cancer in 2020, treated with surgery. No radiation or chemotherapy needed afterwards. After admission patient was extensively evaluated treated including cardiac catheterization, recovery was fine, cleared today for discharge by automation qa analyst, medication reconciled, follow-up with Cardiology in three day, today on physical exam, Vital signs, stable ,afebrile. Pulse Oximetry reflects adequate oxygenation. BMI is General: well developed, well nourished. Awake , alert, and oriented x4, resting comfortably in the bed, in no acute distress . Skin: Warm, dry, no pallor, no rash or petechiae. HEENT: Atraumatic, normocephalic, EOMI, anicteric sclera B; pink conjunctiva; PERRLA, normal oropharynx, moist oral and nasal mucosa. Tympanic membrane , nose , throat clear. Neck: Trachea midline. Supple, full range of motion, no JVD, bruit , hepatojugular reflex , lymphadenopathy or masses, or other lesions Cardiac: Regular rhythm, regular rate no murmurs, rubs, or gallops. Normal S1 and S2, no S3 noticed. PMI is normal. Respiratory: Equal breath sounds bilaterally, no tachypnea; lungs clear to auscultation bilaterally, no wheezing ,rub or rales, or crackles. Chest wall is symmetric and without deformity. No signs of trauma. Chest wall is nontender. No signs of respiratory distress. Resonance is normal upon percussion bilaterally. Gastrointestinal: Abdomen symmetric, non-distended, soft, non-tender, normal bowel sounds x4 quadrant, normoactive, no hepatosplenomegaly , no masses , no bruit, no flank pain bilaterally. No voluntary guarding, rebound, or rigidity. No tenderness to percussion. No pulsatile masses. Equal femoral pulses. No Ray's sign or McBurney point tenderness. Back; no CVA tenderness bilaterally, no deformities. Neck and back are without deformity as well. No tenderness noted on palpation of the spinous processes. Spinous processes are midline. Cervical, thoracic, and lumbar paraspinal muscles are not tender and are without spasm. : normal external genitalia, without lesions, swelling, masses or tenderness Musculoskeletal: Extremities, normal range of motion, non-tender, muscle strength 5/5 x 4. Negative Homans signs bilaterally on lower extremity. Distal pulses full symmetrical, no clubbing, cyanosis , edema. Neurological: Speech is clear, alert, and oriented x 4. No motor or sensory deficit, deep tendon reflexes normal, cerebellar intact. Cranial nerves II-XII intact. Psych: Alert and or appropriate, normal affect. Vascular: Good distal pulses, which are equal x4; capillary refill less than 2 seconds. Lymphatic, no lymphadenopathy. *Problems/Diagnosis: (1) NSTEMI (non-ST elevated myocardial infarction) Status: Acute Total Time Spent on D/C: > 30 Minutes Date of Service: Oct 22, 2024 Billing Provider: DARION LOPEZ MD Common Visit Codes: 27109-NUR/OBS DISCH DAY >30min DARION LOPEZ MD Oct 22, 2024 18:50
--- NOTE | 2024-10-24 22:50 | CARDIOLOGY REPORT ---
DATE OF SERVICE: 10/20/2024 DICTATING PHYSICIAN: Saurabh Choe MD CARDIAC CATHETERIZATION REPORT DATE OF STUDY: 10/20/2024 PROCEDURES: * Left heart catheterization. * Selective coronary angiography. * Left ventriculography. * Angioplasty/stenting of the left anterior descending coronary artery. * Conscious sedation monitor time for 30 minutes. INDICATION: Non-STEMI. PHYSICIAN: Saurabh Choe MD DESCRIPTION OF PROCEDURE: After informed consent was obtained, the patient was brought to the lab where she was prepped and draped in the usual sterile fashion. A 6-English sheath was inserted into the right radial artery. Thereafter, using a TIG catheter, the catheter was advanced into the left ventricle where left ventricular end-diastolic pressure was obtained. Next, the catheter was manipulated and selective right and left coronary angiography performed. Revascularization was then performed as described below. HEMODYNAMICS: For the patient's hemodynamics, please refer to the event log. Left ventricular end-diastolic pressure was 12 mmHg. FINDINGS: The left main coronary artery is a normal caliber vessel with mild luminal irregularities. The left anterior descending coronary artery has a hazy proximal 70-80% stenosis. The circumflex coronary artery is a normal caliber vessel with mild luminal irregularities. The right coronary artery is a large dominant vessel with mild luminal irregularities. Percutaneous coronary intervention: Using an XB LAD guiding catheter, an 0.014 ChoICE PT wire was carefully navigated across the lesion. A 3.5 x 12 mm [place] stent was then advanced across the lesion where it was deployed. Followup angiography revealed very good angiographic results. IMPRESSION: * Angioplasty/stenting of a hazy 70-80% proximal LAD lesion with a 3.5 x 12 mm [place] stent with very good angiographic results. The patient had ELSA-3 flow both pre and post procedure. Of note is that the patient's echocardiogram did reveal mild antral apical hypokinesis. * Mild luminal irregularities of the circumflex and RCA. * Left ventricular end-diastolic pressure was noted to be 12 mmHg. Saurabh Choe MD TID: [id number] RECEIPT: [id number] MK/VIS/AMI
== END 2024-10-22 13:20 | disposition home or self-care (01) | DRG 321 ==
LOC: ER 18:01 → ED HOLD 20:23 → EDBEDREQ 22:14 → PCU 3S 22:30
PROVIDERS: ADMIT Internal Medicine Critical Care Medicine; ATTEND Family Medicine
PROC: 027034Z Dilation of Coronary Artery, One Artery with Drug-eluting Intraluminal Device, Percutaneous Approach (ICD-10-PCS; principal; 2024-10-20)
PROC: 4A023N7 Measurement of Cardiac Sampling and Pressure, Left Heart, Percutaneous Approach (ICD-10-PCS; 2024-10-20)
PROC: B2111ZZ Fluoroscopy of Multiple Coronary Arteries using Low Osmolar Contrast (ICD-10-PCS; 2024-10-20)
PROC: B2151ZZ Fluoroscopy of Left Heart using Low Osmolar Contrast (ICD-10-PCS; 2024-10-20)
DX: I21.4 Non-ST elevation (NSTEMI) myocardial infarction (principal); I50.33 Acute on chronic diastolic (congestive) heart failure; I45.2 Bifascicular block; C17.0 Malignant neoplasm of duodenum; I11.0 Hypertensive heart disease with heart failure; E11.9 Type 2 diabetes mellitus without complications; I48.91 Unspecified atrial fibrillation; E78.5 Hyperlipidemia, unspecified; Z79.82 Long term (current) use of aspirin; Z79.84 Long term (current) use of oral hypoglycemic drugs; Z79.899 Other long term (current) drug therapy; Z87.891 Personal history of nicotine dependence; Z88.0 Allergy status to penicillin
CPT/HCPCS: 93306; 93458; 99291; C9600; 36415; 71045; 80048; 80053; 80061; 82948; 83036; 83735; 83880; 84443; 84484; 85025; 85379; 85730; 87081; 93005; 97116; 97161; 97530; 99152; 99153; A6258; C1751; C1769; C1874; C1894; G0378; J1644; J1815; J2003; J2250; J2405; J3010; J3490; J7030; Q9967